=== PATIENT | male | born 1955 | race Caucasian/White ===

== ENCOUNTER 2019-03-14 08:00 | Inpatient (IN) | payer OTHER ==
[2019-03-06 12:09] VITALS: BMI 25.8
--- NOTE | 2019-03-14 07:58 | HP ---
Satellite [facility] - Chief Complaint Chief Complaint: right knee pain - Past Medical History Allergies/Adverse Reactions: Allergies Allergy/AdvReac Type Severity Reaction Status Date / Time No Known Drug Allergies Allergy Verified 03/06/19 11:53 - Current Medications Current Medications: Home Medications Medication Instructions Recorded Simvastatin [Zocor -] 40 mg PO DAILY #0 tablet 12/24/12 Alprazolam 1 mg PO BID PRN 11/30/14 Esomeprazole Magnesium [Nexium 20 mg PO BID 03/06/19 24Hr] Montelukast Na [Singulair -] 10 mg PO HS 03/06/19 Naproxen Sodium [Aleve] 220 mg PO BID 03/06/19 Turmeric/Turmeric Root Extract 1 each PO DAILY 03/06/19 [Turmeric 500 mg Capsule] Satellite Physical Exam - Physical Examination General Appearance: Well Nourished, Well Developed, Alert & Oriented x3 ENT: Clear Lung: Normal air movement Heart: Regular rate & rhythm Extremities: Other (right knee- + swelling, + ttp, decr rom, nvi, xrays show grade 4 tricompartmental djd) Neurological: Intact, Alert, Oriented Satellite Impression/Plan - Impression/Plan Impression: right knee djd Operative Procedure: right sallie tkr Date to be Performed: 03/14/19
[2019-03-14] MEDS ORDERED: GABAPENTIN 300 MG CAPSULE (FP) PO ONE (08:26)
[2019-03-14] MEDS ORDERED: TRANEXAMIC ACID 1000 MG/10 ML VIAL IVPUSH ONE (08:26)
[2019-03-14] MEDS ORDERED: CEFAZOLIN 2 GM in DEXTROSE 5%-WATER - 50 ML IVPB ONE (08:26)
[2019-03-14] MEDS ORDERED: oxyCODONE HCL 10 MG SUSTAINED ACTING TABLET PO ONE (08:26)
[2019-03-14] MEDS ORDERED: CELECOXIB 200 MG CAPSULE PO ONE (08:26)
[2019-03-14] MEDS ORDERED: MIDAZOLAM HCL 2 MG/2 ML SINGLE DOSE VIAL ONE ×3 (09:01→10:55)
[2019-03-14] MEDS ORDERED: BUPIVACAINE LIPOSOME/PF (EXPAREL) 266 MG/20 ML VIAL ONE (09:01)
[2019-03-14] MEDS ORDERED: SODIUM CHLORIDE 0.9% P/F 10 ML VIAL IJ ONE (09:02)
[2019-03-14] MEDS ORDERED: VANCOMYCIN 1,000 MG VIAL (RESTRICTED TO ID ONLY) ONE (09:13)
[2019-03-14] MEDS ORDERED: ceFAZolin SODIUM 1 GM VIAL ONE ×2 (09:13→10:18)
[2019-03-14] MEDS ORDERED: ALPRAZOLAM 1 MG PO PRN (10:15)
[2019-03-14] MEDS ORDERED: ONDANSETRON 4 MG/2 ML VIAL IVPUSH PRN (10:16)
[2019-03-14] MEDS ORDERED: MAG HYDROX/AL HYDROX/SIMETH 30 ML UNIT-DOSE CUP PO PRN (10:16)
[2019-03-14] MEDS ORDERED: MAGNESIUM HYDROX 2400MG/30ML ORAL SUSPENSION 30 ML CUP PO PRN (10:16)
[2019-03-14] MEDS ORDERED: DEXAMETHASONE SOD PHOSPHATE 4 MG/1 ML VIAL ONE (10:18)
[2019-03-14] MEDS ORDERED: TRANEXAMIC ACID 1000 MG/10 ML VIAL ONE (10:18)
[2019-03-14] MEDS ORDERED: ALPRAZolam 0.25 MG TABLET PO PRN (10:23)
[2019-03-14] MEDS ORDERED: LACTATED RINGERS SOLUTION 1,000 ML IV SCH (10:30)
--- NOTE | 2019-03-14 11:39 | OP ---
Operative Note - Note: Operative Date: 03/14/19 (rabia) Pre-Operative Diagnosis: right knee djd Operation: right sallie tkr Post-Operative Diagnosis: Same as Pre-op Surgeon: Yemi Ceja Head Baker: Brad Brink Anesthesiologist/AUTHORS MOTIVATIONAL: Lesa Snyder Anesthesia: Spinal, Local Specimens Removed: bone fragments Estimated Blood Loss (mls): 150 Operative Report Dictated: Yes
[2019-03-14] MEDS ORDERED: oxyCODONE HCL 5 MG TABLET PO PRN ×2 (13:14→13:15)
[2019-03-14] MEDS ORDERED: ACETAMINOPHEN 325 MG TABLET (FP) ONE (13:56)
[2019-03-14] MEDS: ACETAMINOPHEN 325 MG TABLET (FP) PO SCH ×3 (14:00→23:52)
--- NOTE | 2019-03-14 15:42 | SPEC ---
DATE OF OPERATION: 03/14/2019 PREOPERATIVE DIAGNOSIS: Degenerative joint disease, right knee. POSTOPERATIVE DIAGNOSIS: Degenerative joint disease, right knee. PROCEDURE: Right total knee replacement with robotic-assisted navigation (MAKOplasty). SURGICAL ATTENDING: Yemi Ceja MD STORES CLERK: BALTAZAR Manley ANESTHESIA: Regional and spinal. CLOSURE: A Triathlon cementless knee system with a 5 femur, 5 tibia, 9 polyethylene, 35 patella; No. 1 Vicryl, fascia; 0 and 2-0 for subcutaneous; and 3-0 Monocryl subcuticular with skin glue for skin; 4-0 undyed Vicryl for pin sites. ESTIMATED BLOOD LOSS: Less than 100 mL. COMPLICATIONS: None. CONDITION: To recovery room in stable condition. DESCRIPTION OF OPERATIVE PROCEDURE: Patient was taken to the operating room on March 14, 2019. Regional and spinal anesthesia was administered by the anesthesiologist. IV Kefzol was administered prophylactically prior to the case as well as TXA. The right lower extremity was prepped and draped in the usual sterile fashion. The midline 10- to 12-cm longitudinal incision was made. Hemostasis was achieved with Bovie cautery. Sharp dissection was carried down to the extensor mechanism which was perform the procedure. Medial parapatellar arthrotomy was then performed, leaving a cuff of tissue for later closure. The patella was inverted and the knee was flexed up. The fat pad was excised. Subperiosteal dissection was done on the anteromedial proximal tibia until the knee was able to be brought forward. This was facilitated by taking the ACL, PCL and medial and lateral menisci. Checkpoints were placed in both the femur and in the tibia. Two parallel threaded pins were drilled superior to the knee joint through the already made incision from anterior to posterior just going through the anterior cortex but just engaging but not going through the posterior cortex. Two threaded pins were drilled through 2 small stab incisions in parallel fashion 1 handbreadth below the tibial tubercle through the anterior cortex of the tibia and engaging but not going through the posterior cortex. Both sets of pins were attached to navigation arrays for the STEPHANIA system. The knee was then registered with the navigation system with center of rotation of the hip, medial and lateral malleoli and multiple sites both on the tibia and on the femur. Confirmation of excellent registration was confirmed by "popping the bubbles." At this time, the knee was thoroughly inspected to remove all osteophytes around the knee. The knee was then tensioned in varus/valgus at both full extension and at 90 degrees of flexion to ascertain our gaps. The virtual position of the components was optimized to ensure equal gaps throughout the range of motion. Once this was performed, the robot was brought into the field, was registered. The bone was cut as per the specifications on both the tibia and on the femur. The box cuts were then made as well. Excellent trial stability was obtained on the femur. The tibial baseplate was allowed to "find itself" and then was clipped into place. Confirmation of excellent external rotation of that component was confirmed by the navigation device as well. The patella was calibered for thickness and cut at the appropriate level. The appropriate lollipop was used to drill 3 holes in the patella and a trial asymmetric patellar button was applied. The knee was taken through a range of motion and found to have excellent stability from full extension to full flexion with excellent tracking of the patella. The trial components were then removed. The lug holes were drilled in the femur. The cementless keel was punched in the tibia. The real Press-Fit components were malleted into place, first with the tibia and then with the femur, and then the patella was crimped into place as well. The real polyethylene liner was then clipped into place. Range of motion, stability and tracking were as described earlier. The knee was thoroughly irrigated with copious amounts of irrigation. Vancomycin powder was placed inside the joint. The medial parapatellar arthrotomy was then closed using No. 1 Vicryl interrupted suture. Post closure of the arthrotomy, the knee was taken through a range of motion and found to have no undue tension on the repair. The subcutaneous was then pulse antibiotic irrigated, closed with 0 and 2-0 Vicryl and 3-0 Monocryl subcuticular with skin glue for the skin. Prior to closure, the checkpoints were removed as were the threaded pins. The tibial pin sites were closed with 4-0 undyed Vicryl. A sterile pressure Aquacel dressing was applied. No tourniquet was used during the case. The total blood loss was approximately 100 mL. No complication. Patient was transferred to recovery in stable condition. Maggy [id number]
[2019-03-14] MEDS: oxyCODONE HCL 5 MG TABLET PO PRN ×2 (16:58→19:47)
[2019-03-14] MEDS: CEFAZOLIN 2 GM/D5W 2 GM/50 ML ML IVPB SCH (17:02)
--- NOTE | 2019-03-14 18:00 | CONSULT ---
Consult Consult Specialty:: IM Referred by:: Dr Ceja Reason for Consultation:: medical management - History of Present Illness Chief Complaint: right knee pain - History Source History Provided By: Patient - Past Medical History Cardio/Vascular: Yes: Hyperlipdemia Heme/Onc: Yes: Anemia Psych: Yes: Anxiety - Alcohol/Substance Use Hx Alcohol Use: Yes (1 BEER A DAY) - Smoking History Smoking history: Current every day smoker Have you smoked in the past 12 months: Yes Aproximately how many cigarettes per day: 13 Home Medications - Allergies Allergies/Adverse Reactions: Allergies Allergy/AdvReac Type Severity Reaction Status Date / Time No Known Drug Allergies Allergy Verified 03/06/19 11:53 - Home Medications Home Medications: Ambulatory Orders Alprazolam 1 mg PO BID PRN 11/30/14 Esomeprazole Magnesium [Nexium 24Hr] 20 mg PO BID 03/06/19 Montelukast Na [Singulair -] 10 mg PO HS 03/06/19 Naproxen Sodium [Aleve] 220 mg PO BID 03/06/19 Turmeric/Turmeric Root Extract [Turmeric 500 mg Capsule] 1 each PO DAILY Aspirin [ASA -] 325 mg PO DAILY@0800 tablet 03/14/19 Diphenhydramine HCl [Benadryl Capsule -] 25 mg PO ONCE PRN 03/14/19 Ferrous Sulfate 325 mg PO DAILY 03/14/19 Oxycodone HCl/Acetaminophen [Percocet 5-325 mg Tablet -] 1 - 2 tab PO Q6H #50 tab MDD 8 03/14/19 Simvastatin [Zocor -] 40 mg PO HS 03/14/19 Review of Systems - Review of Systems Constitutional: reports: No Symptoms Eyes: reports: No Symptoms HENT: reports: No Symptoms Neck: reports: No Symptoms Cardiovascular: reports: No Symptoms Respiratory: reports: No Symptoms Gastrointestinal: reports: No Symptoms Genitourinary: reports: No Symptoms Musculoskeletal: reports: Joint Pain Integumentary: reports: No Symptoms Neurological: reports: No Symptoms Endocrine: reports: No Symptoms Hematology/Lymphatic: reports: No Symptoms Psychiatric: reports: No Symptoms Pain Intensity: 8 Physical Exam Vital Signs: Vital Signs Temperature 97.5 F L 03/14/19 14:10 Pulse Rate 63 03/14/19 14:10 Respiratory Rate 16 03/14/19 14:10 Blood Pressure 93/63 03/14/19 14:10 O2 Sat by Pulse Oximetry (%) 94 L 03/14/19 14:10 Constitutional: Yes: Well Nourished Eyes: Yes: WNL HENT: Yes: WNL Neck: Yes: WNL Cardiovascular: Yes: WNL Respiratory: Yes: WNL Gastrointestinal: Yes: WNL Musculoskeletal: Yes: Joint Stiffness Extremities: Yes: WNL Edema: No Integumentary: Yes: WNL Wound/Incision: Yes: Clean/Dry, Well Approximated Neurological: Yes: WNL Psychiatric: Yes: WNL Assessment/Plan 64 yo man eith right knee DJD S/P right sallie TKR. no complications. cont pain management. incentive spirometry. -GI, DVT prophylaxis. -ID: covered empirically with ancef -GI, DVT prophylaxis. -cont laxatives for opioid induced constipation -on xanax for anxiety -chronic anemia: on ferrous sulfate -oral diet -PT/OT/OOB as tolerated -assessment and plan discussed with pt and family at bedside -meds reviewed. awaiting labs
[2019-03-14] MEDS ORDERED: HYDROmorphone HCl 2 MG/ML VIAL IVPB PRN (21:13)
[2019-03-14] MEDS: ACETAMINOPHEN 1000 MG/100 ML VIAL (NON FORMULARY) IVPB SCH (21:20)
[2019-03-14] MEDS: KETOROLAC TROMETHAMINE 30 MG/1 ML VIAL IVPUSH SCH (21:41)
[2019-03-14] MEDS: MONTELUKAST NA 10 MG TABLET PO SCH (21:48)
[2019-03-14] MEDS: PANTOPRAZOLE 20 MG TABLET (FP) PO SCH (21:48)
[2019-03-14] MEDS: ATORVASTATIN CA 20 MG TABLET (FP) PO SCH (21:48)
[2019-03-14] MEDS: SENNOSIDES/DOCUSATE COMBO (SENNA PLUS) TABLET (UD) PO SCH (21:48)
[2019-03-14] MEDS ORDERED: PATIENT'S OWN MEDICATION (NON-FORMULARY) (Esomeprazole Magnesium [Nexium 24hr] 20 MG) PO SCH (22:00)
[2019-03-14] MEDS ORDERED: PATIENT'S OWN MEDICATION (NON-FORMULARY) (Simvastatin 40 MG) PO SCH (22:00)
[2019-03-14] MEDS: oxyCODONE HCL 10 MG SUSTAINED ACTING TABLET PO SCH (23:51)
[2019-03-15] MEDS: CEFAZOLIN 2 GM/D5W 2 GM/50 ML ML IVPB SCH (01:23)
[2019-03-15] MEDS: KETOROLAC TROMETHAMINE 30 MG/1 ML VIAL IVPUSH SCH ×3 (01:23→17:45)
[2019-03-15] MEDS: ACETAMINOPHEN 325 MG TABLET (FP) PO SCH ×4 (03:14→20:22)
[2019-03-15] MEDS: ACETAMINOPHEN 1000 MG/100 ML VIAL (NON FORMULARY) IVPB SCH ×3 (03:14→15:29)
[2019-03-15] MEDS: oxyCODONE HCL 5 MG TABLET PO PRN ×3 (06:43→17:42)
--- NOTE | 2019-03-15 08:15 | PN ---
Progress Note (short form) - Note Progress Note: Ortho Pt seen and examined s/p right sallie tkr pod #1 Selected Entries 03/15/19 05:59 Temperature 97.8 F Pulse Rate 77 Respiratory 18 Rate Blood Pressure 134/72 Laboratory Tests 03/15/19 07:13 WBC Pending Hgb Pending Hct Pending Plt Count Pending dressing c/d/i, calf soft, nt rom 0-40, nvi a/p PT dvt ppx pain control d/c home tomorrow if stable
[2019-03-15 08:24] LABS: HEMATOCRIT 44.9 % (35.4-49); HEMOGLOBIN 15.3 GM/dl (11.7-16.9); MCH 32.8 pg (25.7-33.7); MEAN CELL VOLUME 96.5 fl (80-96); MEAN PLT VOLUME 7.4 fl (7.5-11.1); PLATELET COUNT 306 K/MM3 (134-434); RBC 4.65 M/mm3 (4.00-5.60); RDW 11.8 % (11.9-15.9); WHITE BLOOD COUNT 14.6 K/mm3 (4.0-10.8)
[2019-03-15] MEDS: SENNOSIDES/DOCUSATE COMBO (SENNA PLUS) TABLET (UD) PO SCH ×2 (09:18→21:33)
[2019-03-15] MEDS: FERROUS SO4 325 MG TABLET (FP) PO SCH (09:19)
[2019-03-15] MEDS: PANTOPRAZOLE 20 MG TABLET (FP) PO SCH ×2 (09:19→21:33)
[2019-03-15] MEDS: oxyCODONE HCL 10 MG SUSTAINED ACTING TABLET PO SCH ×2 (09:19→21:33)
[2019-03-15] MEDS: ASPIRIN 325 MG TABLET PO SCH (09:20)
[2019-03-15] MEDS: MULTIVITAMINS (DAILY MVI) TABLET (FP) PO SCH (09:20)
[2019-03-15] MEDS ORDERED: PATIENT'S OWN MEDICATION (NON-FORMULARY) (Ferrous Sulfate [Ferrous Sulfate] 325 MG) PO SCH (10:00)
--- NOTE | 2019-03-15 15:54 | PN ---
Progress Note, Physician Chief Complaint: right knee pain - Current Medication List Current Medications: Active Medications Acetaminophen (Tylenol -) 650 mg PO Q6H [facility] Stop: 03/17/19 14:59 Last Admin: 03/15/19 15:36 Dose: 650 mg Al Hydroxide/Mg Hydroxide (Mylanta Oral Suspension -) 30 ml PO Q4H PRN PRN Reason: DYSPEPSIA Alprazolam (Xanax -) 1 mg PO BID PRN PRN Reason: ANXIETY Aspirin (Asa -) 325 mg PO DAILY@0800 [facility] Last Admin: 03/15/19 09:20 Dose: 325 mg Atorvastatin Calcium (Lipitor -) 20 mg PO HS [facility] Last Admin: 03/14/19 21:48 Dose: 20 mg Ferrous Sulfate (Feosol -) 325 mg PO DAILY [facility] Last Admin: 03/15/19 09:19 Dose: 325 mg Hydromorphone HCl (Dilaudid Vial -) 0.5 mg IVPB Q4H PRN PRN Reason: PAIN LEVEL 4 - 6 Stop: 03/15/19 23:59 Last Admin: 03/14/19 21:42 Dose: 0.5 mg Ketorolac Tromethamine (Toradol Injection -) 30 mg IVPUSH Q8H-IV [facility] Stop: 03/19/19 21:14 Last Admin: 03/15/19 09:12 Dose: 30 mg Magnesium Hydroxide (Milk Of Magnesia -) 30 ml PO PRN PRN PRN Reason: CONSTIPATION Montelukast Sodium (Singulair -) 10 mg PO [facility] Last Admin: 03/14/19 21:48 Dose: 10 mg Multivitamins/Minerals/Vitamin C (Tab-A-Vit -) 1 tab PO DAILY [facility] Last Admin: 03/15/19 09:20 Dose: 1 tab Ondansetron HCl (Zofran Injection) 4 mg IVPUSH Q6H PRN PRN Reason: NAUSEA Last Admin: 03/15/19 15:30 Dose: 4 mg Oxycodone HCl (Roxicodone -) 5 mg PO Q3H PRN PRN Reason: PAIN LEVEL 1-5 Oxycodone HCl (Roxicodone -) 10 mg PO Q3H PRN PRN Reason: PAIN LEVEL 6-10 Last Admin: 03/15/19 12:03 Dose: 10 mg Oxycodone HCl (Oxycontin -) 10 mg PO BID [facility] Last Admin: 03/15/19 09:19 Dose: 10 mg Pantoprazole Sodium (Protonix -) 20 mg PO BID [facility] Last Admin: 03/15/19 09:19 Dose: 20 mg Senna/Docusate Sodium (Pericolace -) 2 tablet PO BID [facility] Last Admin: 03/15/19 09:18 Dose: 2 tablet - Objective Vital Signs: Vital Signs Temperature 97.6 F 03/15/19 14:00 Pulse Rate 64 03/15/19 14:00 Respiratory Rate 18 03/15/19 14:00 Blood Pressure 128/61 03/15/19 14:00 O2 Sat by Pulse Oximetry (%) 96 03/15/19 14:00 Constitutional: Yes: Well Nourished Eyes: Yes: WNL HENT: Yes: WNL Neck: Yes: WNL Cardiovascular: Yes: WNL Respiratory: Yes: WNL Genitourinary: Yes: WNL Musculoskeletal: Yes: WNL, Joint Stiffness Extremities: Yes: WNL Integumentary: Yes: WNL Wound/Incision: Yes: Clean/Dry, Well Approximated Neurological: Yes: WNL Labs: CBC, BMP 03/15/19 07:13 Assessment/Plan 64 yo man eith right knee DJD S/P right asllie TKR. no complications. cont pain management. incentive spirometry. says pain is better managed today -GI, DVT prophylaxis. -ID: covered empirically with ancef -GI, DVT prophylaxis. -cont laxatives for opioid induced constipation -on xanax for anxiety -chronic anemia: on ferrous sulfate -oral diet -PT/OT/OOB as tolerated -assessment and plan discussed with pt and family at bedside -meds and labs reviewed DC planned for tomorrow.
[2019-03-15] MEDS: ATORVASTATIN CA 20 MG TABLET (FP) PO SCH (21:33)
[2019-03-15] MEDS: MONTELUKAST NA 10 MG TABLET PO SCH (21:33)
[2019-03-16] MEDS: ACETAMINOPHEN 325 MG TABLET (FP) PO SCH ×2 (02:16→09:24)
[2019-03-16] MEDS: KETOROLAC TROMETHAMINE 30 MG/1 ML VIAL IVPUSH SCH ×2 (02:17→09:25)
[2019-03-16] MEDS: oxyCODONE HCL 5 MG TABLET PO PRN (05:41)
[2019-03-16 08:26] LABS: HEMATOCRIT 38.9 % (35.4-49); HEMOGLOBIN 13.2 GM/dl (11.7-16.9); MCH 32.7 pg (25.7-33.7); MCHC 33.9 g/dl (32.0-35.9); MEAN CELL VOLUME 96.4 fl (80-96); MEAN PLT VOLUME 7.4 fl (7.5-11.1); PLATELET COUNT 240 K/MM3 (134-434); RBC 4.04 M/mm3 (4.00-5.60); RDW 12.1 % (11.9-15.9); WHITE BLOOD COUNT 12.7 K/mm3 (4.0-10.8)
--- NOTE | 2019-03-16 08:26 | DS ---
Physical Examination Vital Signs: Vital Signs Temperature 97.7 F 03/16/19 06:00 Pulse Rate 68 03/16/19 06:00 Respiratory Rate 18 03/16/19 06:00 Blood Pressure 113/63 03/16/19 06:00 O2 Sat by Pulse Oximetry (%) 96 03/16/19 06:00 Discharge Summary Reason For Visit: OSTEOARTHRITIS Procedures: Principal: right tkr Hospital Course: admitted for elective right sallie tkr, uneventful post-op, stable for d/c Condition: Good - Instructions Diet, Activity, Other Instructions: Post-op Instructions-Total Knee Replacement Call the office for a follow-up appointment in 1 week - [phone] Aspirin 325mg daily for 6 weeks. Pain medication was sent into your pharmacy. Apply Graduated Compression Stockings (TEDs) to both lower extremities- remove daily for hygiene ONLY Apply Sequential Compression Device (SCDs) to both Lower extremities remove for PT and hygiene ONLY Apply cold packs to affected area for 15 minutes every 2 hours. Physical Therapist will come to your home for the first 5 days. You will be set up with outpatient PT at your first post-operative visit. Patient may ambulate as tolerated-encourage self care (at least every 2-3 hours while awake) with walker or cane Maintain Aquacel (waterproof) dressing to operative wound (will be removed by surgeon at first office visit) Shower with Aquacel dressing in place-if Aquacel integrity compromised, remove and apply dry sterile dressing and notify Orthopedist. DO NOT SHOWER unless Orthopedists approves without Aquacel dressing CONTACT THE OFFICE FOR ANY CHANGE IN YOUR CONDITION (for example-fever greater than 102 degrees, excessive bleeding from operative site, purulent drainage, severe swelling or pain) GO TO THE EMERGENCY ROOM IF THERE IS A MEDICAL EMERGENCY Knee Precautions: * Keep a rolled towel under affected heel while in bed or chair (to keep knee in extension) * Keep affected leg elevated except during mealtimes * DO NOT PLACE PILLOW UNDER AFFECTED KNEE * If you have any questions, please do not hesitate to call the office - [phone]. Referrals: Yemi Ceja MD [Staff Physician] - Disposition: VNS/HOME HEALTH CARE - Home Medications Comprehensive Discharge Medication List: Ambulatory Orders Alprazolam 1 mg PO BID PRN 11/30/14 Esomeprazole Magnesium [Nexium 24Hr] 20 mg PO BID 03/06/19 Montelukast Na [Singulair -] 10 mg PO HS 03/06/19 Naproxen Sodium [Aleve] 220 mg PO BID 03/06/19 Turmeric/Turmeric Root Extract [Turmeric 500 mg Capsule] 1 each PO DAILY Aspirin [ASA -] 325 mg PO DAILY@0800 tablet 03/14/19 Diphenhydramine HCl [Benadryl Capsule -] 25 mg PO ONCE PRN 03/14/19 Ferrous Sulfate 325 mg PO DAILY 03/14/19 Simvastatin [Zocor -] 40 mg PO HS 03/14/19
--- NOTE | 2019-03-16 08:26 | PN ---
Progress Note, Physician Chief Complaint: right knee pain - Current Medication List Current Medications: Active Medications Acetaminophen (Tylenol -) 650 mg PO Q6H [facility] Stop: 03/17/19 14:59 Last Admin: 03/16/19 02:16 Dose: 650 mg Al Hydroxide/Mg Hydroxide (Mylanta Oral Suspension -) 30 ml PO Q4H PRN PRN Reason: DYSPEPSIA Alprazolam (Xanax -) 1 mg PO BID PRN PRN Reason: ANXIETY Aspirin (Asa -) 325 mg PO DAILY@0800 [facility] Last Admin: 03/15/19 09:20 Dose: 325 mg Atorvastatin Calcium (Lipitor -) 20 mg PO HS [facility] Last Admin: 03/15/19 21:33 Dose: 20 mg Ferrous Sulfate (Feosol -) 325 mg PO DAILY [facility] Last Admin: 03/15/19 09:19 Dose: 325 mg Ketorolac Tromethamine (Toradol Injection -) 30 mg IVPUSH Q8H-IV [facility] Stop: 03/19/19 21:14 Last Admin: 03/16/19 02:17 Dose: 30 mg Magnesium Hydroxide (Milk Of Magnesia -) 30 ml PO PRN PRN PRN Reason: CONSTIPATION Montelukast Sodium (Singulair -) 10 mg PO [facility] Last Admin: 03/15/19 21:33 Dose: 10 mg Multivitamins/Minerals/Vitamin C (Tab-A-Vit -) 1 tab PO DAILY [facility] Last Admin: 03/15/19 09:20 Dose: 1 tab Ondansetron HCl (Zofran Injection) 4 mg IVPUSH Q6H PRN PRN Reason: NAUSEA Last Admin: 03/15/19 15:30 Dose: 4 mg Oxycodone HCl (Roxicodone -) 5 mg PO Q3H PRN PRN Reason: PAIN LEVEL 1-5 Oxycodone HCl (Roxicodone -) 10 mg PO Q3H PRN PRN Reason: PAIN LEVEL 6-10 Last Admin: 03/16/19 05:41 Dose: 10 mg Oxycodone HCl (Oxycontin -) 10 mg PO BID [facility] Last Admin: 03/15/19 21:33 Dose: 10 mg Pantoprazole Sodium (Protonix -) 20 mg PO BID [facility] Last Admin: 03/15/19 21:33 Dose: 20 mg Senna/Docusate Sodium (Pericolace -) 2 tablet PO BID [facility] Last Admin: 03/15/19 21:33 Dose: 2 tablet - Objective Vital Signs: Vital Signs Temperature 97.7 F 03/16/19 06:00 Pulse Rate 68 03/16/19 06:00 Respiratory Rate 18 03/16/19 06:00 Blood Pressure 113/63 03/16/19 06:00 O2 Sat by Pulse Oximetry (%) 96 03/16/19 06:00 Constitutional: Yes: Well Nourished, No Distress, Calm Eyes: Yes: WNL HENT: Yes: WNL Neck: Yes: WNL Cardiovascular: Yes: WNL Respiratory: Yes: WNL Gastrointestinal: Yes: WNL Genitourinary: Yes: WNL Musculoskeletal: Yes: Joint Stiffness Extremities: Yes: WNL Integumentary: Yes: WNL Wound/Incision: Yes: Clean/Dry Neurological: Yes: WNL Assessment/Plan 64 yo man eith right knee DJD S/P right sallie TKR POD #2 no complications. cont pain management. incentive spirometry. -GI, DVT prophylaxis. -ID: covered empirically with ancef -GI, DVT prophylaxis. -cont laxatives for opioid induced constipation -on xanax for anxiety -chronic anemia: on ferrous sulfate -oral diet -PT/OT/OOB as tolerated -assessment and plan discussed with pt and family at bedside -meds and labs reviewed DC planned for today after PT
--- NOTE | 2019-03-16 08:26 | PN ---
Progress Note (short form) - Note Progress Note: Ortho Pt seen and examined s/p right sallie tkr pod #2 Selected Entries 03/16/19 06:00 Temperature 97.7 F Pulse Rate 68 Respiratory 18 Rate Blood Pressure 113/63 Laboratory Tests 03/15/19 07:13 WBC 14.6 H Hgb 15.3 Hct 44.9 Plt Count 306 dressing c/d/i, calf soft, nt rom 0-40, nvi a/p PT dvt ppx pain control d/c home today f/u in 1 week
[2019-03-16 08:44] VITALS: BP 94/60; PULSE 73; TEMP 97.9
[2019-03-16] MEDS: ASPIRIN 325 MG TABLET PO SCH (09:22)
[2019-03-16] MEDS: FERROUS SO4 325 MG TABLET (FP) PO SCH (09:23)
[2019-03-16] MEDS: MULTIVITAMINS (DAILY MVI) TABLET (FP) PO SCH (09:23)
[2019-03-16] MEDS: SENNOSIDES/DOCUSATE COMBO (SENNA PLUS) TABLET (UD) PO SCH (09:23)
[2019-03-16] MEDS: PANTOPRAZOLE 20 MG TABLET (FP) PO SCH (09:24)
[2019-03-16] MEDS: oxyCODONE HCL 10 MG SUSTAINED ACTING TABLET PO SCH (09:24)
--- NOTE | 2019-03-17 09:57 | PATH ---
Surgical Pathology Report Patient Name: PRINCESS GARZON JR Med. Rec. #: [id number] /Age/Gender: 1955 (Age: 64) / M Account: [id number] Location: [facility] Taken: 03/14/2019 Received: 03/14/2019 Reported: 03/17/2019 Physicians: Yemi Ceja M.D. Specimen(s) Received RIGHT KNEE BONES Clinical History Right knee osteoarthritis Final Diagnosis BONE AND SOFT TISSUE, RIGHT KNEE, REPLACEMENT: DEGENERATIVE JOINT DISEASE. Electronically Signed Samm Denise M.D. Gross Description Received in formalin labeled "bones right knee," is a 12.5 x 10.5 x 2.0 cm aggregate of multiple portions of bone and soft tissue. The tibial plateau measures 7.6 x 5.5 x 1.7 cm. There are multiple areas of eburnation, measuring up to 2.3 cm in greatest dimension. The remaining articular surfaces are stern-brown and diffusely granular. The underlying trabecular bone is yellow and hard. Cinder Worker sections are submitted in one cassette, following decalcification. /03/15/2019 [facility]03/15/2019
== END 2019-03-16 13:18 | disposition home health service (06) | DRG 470 ==
LOC: FM/S 08:25
PROVIDERS: ADMIT Orthopaedic Surgery; ATTEND Orthopaedic Surgery
PROC: 8E0Y0CZ Robotic Assisted Procedure of Lower Extremity, Open Approach (ICD-10-PCS; 2019-03-14)
PROC: 0SRC0JZ Replacement of Right Knee Joint with Synthetic Substitute, Open Approach (ICD-10-PCS; principal; 2019-03-14 10:28)
DX: M17.11 Unilateral primary osteoarthritis, right knee (principal); E78.5 Hyperlipidemia, unspecified; D64.9 Anemia, unspecified; F41.9 Anxiety disorder, unspecified; F17.210 Nicotine dependence, cigarettes, uncomplicated; K59.03 Drug induced constipation; T40.2X5A Adverse effect of other opioids, initial encounter
CPT/HCPCS: 36415; 73560-TC-RT-FY; 85027; 88304-TC; 88311-TC; 94760; 97116-GP; J0131